=== PATIENT | female | born 2000 | race Caucasian/White ===

== ENCOUNTER → 2022-12-03 10:14 | Outpatient (CLI) | payer OTHER, SELFPAY ==
[2022-12-14 15:49] LABS: Cardiolipin IgA Negative (.)
== END ==
PROVIDERS: PCP Physician Assistant Medical; Referring Provider Specialist; Visit Provider Specialist
DX: Z13.0 Encounter for screening for diseases of the blood and blood-forming organs and certain disorders involving the immune mechanism (principal); Z83.2 Family history of diseases of the blood and blood-forming organs and certain disorders involving the immune mechanism
CPT/HCPCS: 36415; 83520; 86147; 86148